=== PATIENT | female | born 1940 | race Caucasian/White ===

== ENCOUNTER 2016-06-20 18:07 | Emergency (ER) | payer MEDICARE, OTHER ==
[~2016-06-20] VITALS: Ht 152.4 cm; Wt 65.9 kg
[~2016-06-20 18:07] MED LIST: CA C1TAB83 PO; CIPR-231 PO; KRIL500C PO; METO25TA6 PO; MULT-666 PO; NAPR220C11 PO
[2016-06-20 18:14] VITALS: BP 179/89; PULSE 87; RESP 16; O2SAT 99
[2016-06-20 19:19] LABS: BASOPHILS % (AUTO) 0.8 % (0-3); EOSINOPHILS % (AUTO) 2.1 % (0-5); MONOCYTES % (AUTO) 8.8 % (4-12); Mean Corpuscular Hemoglobin 31.6 pg (27.0-35.0); Mean Corpuscular Volume 87.5 fL (81-100); NEUTROPHILS % (AUTO) 72.5 % (40-74); Platelet Count 417 bil/L (150-400)
[2016-06-20 19:50] VITALS: BP 147/66; PULSE 81; RESP 20; O2SAT 96
[2016-06-20 19:51] LABS: TROPONIN T < 0.010 ug/L (0.0-0.011)
[2016-06-20 20:00] LABS: Magnesium 1.6 mg/dL (1.6-2.6)
--- NOTE | 2016-06-20 20:14 | ED.REPORT ---
HPI-General Illness Date of Service Jun 20, 2016 ED Provider: Roberto Castillo MD A 76 year old female who currently has C DIFF, presents to the ED complaining of intermittent chills and shakes onset earlier this afternoon. She was recently diagnosed with C DIFF, but it took 10 days for lab results to get back to her, thus she had constant diarrhea and abdominal cramping for 2 weeks that has since resolved in the last 3 days after the patient started taking Flagyl. Associated symptoms include abdominal cramping similar to that recently experienced from C DIFF. Her current chills are not as bad as when she was hospitalized for sepsis about a year ago. She denies any cough, dysuria, frequent urination, or nausea. She reports a large BM before arrival at ED. Per , she is known to pass out with intense diarrhea. She reports that she now feels better than when she initially arrived at the ED. She is accompanied by her and her friend. Nursing Notes Stated Complaint: INFECTION,HIGH BP Chief Complaint: General Complaint Nursing Notes Reviewed: Yes Allergies: Coded Allergies: No Known Allergies (Verified Allergy, Unknown, 06/20/16) Scheduled Ca Carbonate/Vitamin D3/Vit K (Calcium + D Soft Chewable Tab) 1 Each Tab.chew 1 EACH PO DAILY Cephalexin (Cephalexin) 500 Mg Capsule 500 MG PO TID Ciprofloxacin (Cipro) 500 Mg Tablet 500 MG PO BID Krill Oil (Krill Oil) 500 Mg Capsule 500 MG PO DAILY Metoprolol Tartrate (Metoprolol Tartrate) 25 Mg Tablet 25 MG PO BID Multivitamin (Once Daily) 1 Each Tablet 1 EACH PO DAILY Naproxen Sodium (Aleve) 220 Mg Capsule 440 MG PO TID General Time Seen by MD: 20:12 Chief Complaint Other (chills) Hx Obtained From: Patient, Spouse Arrived By: Walk-in Sudden in Onset?: No Onset Occurred: 1 - 4 hours ago Symptom Duration: Intermittent Severity: Current: Mild Severity: Maximum: Mild Recent Healthcare: Recent doctor visit Similar Sx Previous: No Past Medical History Past Medical History Notes: Dr. Adelina Guerra is PCP. Past Medical History Currently taking Flagyl for C DIFF. Chronic back pain on Naproxen Hx of bladder infection Denies hx of kidney stones Hospitalized 10/15/15-10/20/15 for sepsis. Past Surgical History Back surgery x3 Smoking History Former Smoker Social History Drug Use: Denies drug use Other Social History: Good social support, Ambulatory Status Independent Review of Systems Denies dysuria. Full Review of Systems Constitutional: Reports: Chills Respiratory: Denies: Non-productive cough GI: Reports: Abdominal pain, Denies: Nausea Female: Denies: Urinary frequency Neurologic: Reports: Shaking Complete sys rev & neg: except as marked. Physical Exam Vital Signs Vital Signs Date Time Temp Pulse Resp B/P Pulse Ox O2 Delivery O2 Flow Rate FiO2 06/20/16 22:23 86 18 147/58 95 Room Air 06/20/16 19:50 81 20 147/66 96 Room Air 06/20/16 18:14 35.9 87 16 179/89 99 Room Air Initial VS: Reviewed General/Constitutional: Awake, Alert Head / Eyes: Atraumatic, Normocephalic, PERRL, EOMI ENT: Atraumatic, Airway patent Neck: Atraumatic, Supple Respiratory / Chest: Breath sounds = bilat scattered crackles on chest auscultation throughout. Cardiovascular: Heart rate NL, Regular rhythm, Heart sounds NL, No gallop, No murmurs, No rubs Abdomen: No guarding, No rebound, BS normoactive, No distention (bladder not distended.) Tenderness/Guarding/Rebound: Positive: Tender suprapubic Back: No CVA tenderness Skin: Warm, Dry Neurologic: Oriented X3, Speech NL Interpretation & Diagnostics Lab Results Interpretation Result Diagram: 06/20/16190906/20/161909 Test 06/20/16 19:10 06/20/16 19:50 White Blood Count 9.2th/mm3 (3.8-10.1) Red Blood Count 4.33mil/mm3 (3.90-5.20) Hemoglobin 13.7g/dL (12.0-15.6) Hematocrit 37.9% (35.0-46.0) Mean Corpuscular Volume 87.5fL (81-100) Mean Corpuscular Hemoglobin 31.6pg (27.0-35.0) Mean Corpuscular Hemoglobin Concent 36.1% (32.0-37.0) Red Cell Distribution Width 12.0% (12.3-15.4) Platelet Count 417bil/L (150-400) Neutrophils (%) (Auto) 72.5% (40-74) Lymphocytes (%) (Auto) 15.7% (14-46) Monocytes (%) (Auto) 8.8% (4-12) Eosinophils (%) (Auto) 2.1% (0-5) Basophils (%) (Auto) 0.8% (0-3) Sodium Level 126mEq/L (134-144) Potassium Level 4.1mEq/L (3.5-5.2) Chloride Level 88mEq/L (97-108) Carbon Dioxide Level 19mmol/L (18-29) Blood Urea Nitrogen 11mg/dL (8-27) Creatinine 0.97mg/dL (0.57-1.00) Estimat Glomerular Filtration Rate 80mL/min (>59) Glucose Level 101mg/dL (60-99) Lactic Acid Level 1.1mmol/L (0.4-2.0) Calcium Level 10.0mg/dL (8.5-10.1) Magnesium Level 1.6mg/dL (1.6-2.6) Total Bilirubin 0.3mg/dL (0.0-1.2) Aspartate Amino Transf (AST/SGOT) 39U/L (0-50) Alanine Aminotransferase (ALT/SGPT) 33U/L (0-32) Alkaline Phosphatase 78U/L (25-165) Troponin T < 0.010ug/L (0.0-0.011) Total Protein 7.5g/dL (6.4-8.4) Albumin 4.5g/dL (3.4-5.0) Urine Color Straw (YELLOW) Urine Appearance Clear (CLEAR,HAZY) Urine pH 6.0 (5.0-8.0) Urine Specific [place] <1.005 (1.003-1.035) Urine Protein Negativemg/dL (NEG,TRACE) Urine Glucose (UA) Negativemg/dL (NEGATIVE) Urine Ketones Tracemg/dL (NEGATIVE) Urine Occult Blood Negative (NEGATIVE) Urine Nitrite Negative (NEGATIVE) Urine Bilirubin Negative (NEGATIVE) Urine Urobilinogen Normalmg/dL (NORMAL) Urine Leukocyte Esterase Moderate (NEGATIVE) Urine RBC 0-2/hpf (0-2) Urine WBC 6-10/hpf (0-5) Urine Epithelial Cells Occasional/hpf (NONE-MOD) Urine Crystals None seen (NONE SEEN) Urine Bacteria None/hpf (NONE-FEW) Urine Hyaline Casts None/lpf (NONE) Urine Granular Casts None seen (NONE SEEN) Urine Waxy Casts None seen (NONE SEEN) Urine Red Blood Cell Casts None seen (NONE SEEN) Urine White Blood Cell Casts None seen (NONE SEEN) Urine Mucus None seen (None Seen) Urine Trichomonas None seen (NONE SEEN) Urine Yeast None (NONE SEEN) Urinalysis Comment None Urine Culture Reflexed Indicated ECG Interpretation ECG Interpretation: Rate is 82. Sinus rhythm. Time: 15:05 Interpreted by: ED physician X-Ray Chest Interpretation Chest Xray Interpretation: IMPRESSION: No acute cardiopulmonary findings. Dictated by: Rashmi Abdi M.D. on 06/20/2016 at 21:04 Approved by: Rashmi Adbi M.D. on 06/20/2016 at 21:05 Interpretation / Wet Read by: Interpret - Radiologist Re-Eval/Medical Decision Source of Hx: Old records Time of Eval: 21:44 Re-Evaluation/Progress Note: Rechecked patient and explained normal XRay result. Explained concern for UTI or bladder infection. Explained plan for patient to call ED on Wednesday morning to inquire for culture results, and that if nothing is found in culture she can stop taking antibiotics prescribed tonight by me. Explained plan for patient to follow up with her regular doctor. Patient understands and agrees with the plan. All questions addressed. Counseled Regarding: Diagnosis, Lab results, Need for follow-up, When/why to return to ED Discharge & Departure Primary Impression: Urinary tract infection Urinary tract infection type: acute cystitis Hematuria presence: without hematuria Qualified Code: N30.00 - Acute cystitis without hematuria Additional Impression: Rigors Disposition: Home Discharge Condition All VS Reviewed: Yes Condition: Stable Patient Instructions: Urinary Tract Infection in Women (ED) Additional Instructions: Emergency department evaluation today included interview, examination, labs chest x-ray review of past records. Shaking chills were observed although we did not record a fever. Exam and labs are reassuring otherwise with the exception of a possible urinary tract infection. Though we do not identify any symptoms other than shaking chills prior experience with urinary tract infection is concerning and we have elected to treat while awaiting culture results. Intravenous Rocephin is given in the emergency department, this will cover U for 24 hours. Start cephalexin 500 mg 3 times a day beginning tomorrow evening. Call us on Wednesday for culture results, we expect to discontinue antibiotic coverage if cultures are negative. Return to emergency department if getting worse, fevers increasing weakness frequent vomiting and flank pain or other new worrisome symptoms. Follow-up with primary care next week. Continue oral Flagyl for C. difficile. Referrals: Adelina Guerra MD (PCP) Camryn Attestation Portions of this note were transcribed by Bacilio Trejo. I, Dr. Castillo personally performed the history, physical exam and medical decision-making; I reviewed and confirmed the accuracy of the information in the transcribed note. Signed by: Camryn Heredia, 06/20/2016, [id number]. copies to: Adelina Guerra MD, Donald L MD Jun 20, 2016 20:14 Bacilio Trejo Jun 20, 2016 20:39
[2016-06-20 20:18] LABS: APPEARANCE,URINE CLEAR (CLEAR,HAZY); COLOR,URINE STRAW (YELLOW); OCCULT BLOOD,URINE NEGATIVE (NEGATIVE); UROBILINOGEN,URINE NORMAL (NORMAL)
--- NOTE | 2016-06-20 21:06 | DRSVH ---
PROCEDURE: X-RAY CHEST ONE VIEW, PORTABLE ([id number]) INDICATIONS: chills TECHNIQUE: One view of the chest was acquired. COMPARISON: None. FINDINGS: Surgical changes and devices: None. Lungs and pleura: No pleural effusions or pneumothorax. Lungs are clear. Mediastinum: Mediastinal contours appear normal. Heart size is normal. Bones and chest wall: No suspicious bony lesions. Overlying soft tissues appear unremarkable. IMPRESSION: No acute cardiopulmonary findings. Dictated by: Rashmi Abdi M.D. on 06/20/2016 at 21:04 Approved by: Rashmi Abdi M.D. on 06/20/2016 at 21:05
[2016-06-20] MEDS ORDERED: cefTRIAXone Inj 2,000 MG in Dextrose 5% Minibag Plus 50 ML IV ONE (21:15)
[2016-06-20] MEDS ORDERED: CEPH500C PO (21:53)
[2016-06-20 22:23] VITALS: BP 147/58; PULSE 86; RESP 18; O2SAT 95
== END 2016-06-20 22:10 | disposition home or self-care (01) ==
LOC: SED 18:07
DX: N30.00 Acute cystitis without hematuria (principal); Z87.891 Personal history of nicotine dependence; Z79.899 Other long term (current) drug therapy
CPT/HCPCS: 36415; 71010; 80053; 81000; 83605; 83735; 84484; 85025; 87040; 87086; 87088; 93005; 96365; 99285; J0696